=== PATIENT | male | born 1960 | race Caucasian/White ===

== ENCOUNTER 2016-09-23 08:15 | Inpatient (IN) | payer OTHER, BC ==
--- NOTE | 2016-09-01 10:20 | PAT Medication Instructions ---
Service Date Sep 01, 2016. Current Home Medication List Acetaminophen (Tylenol), 2 TAB PO Q6 Bupropion (Wellbutrin), 200 MG PO BID Citalopram (Celexa *), 40 MG PO HS Fluticasone Propionate (Flonase Nasal [place]), 2 SPRAY JILLIAN DAILY PRN Pioglitazone (Actos), 1 TAB PO QAM Zolpidem Tartrate (Ambien), 10 MG PO HS PRN for Insomnia Medication Instructions For Your Scheduled Surgery - Hold the following medications the morning of surgery: Pioglitazone (Actos), 1 TAB PO QAM - Take the following medications the morning of surgery with a sip of water: Acetaminophen (Tylenol), 2 TAB PO Q6h (may take up to 4 hours prior to surgery if needed) Bupropion (Wellbutrin), 200 MG PO BID Fluticasone Propionate (Flonase Nasal [place]), 2 SPRAY JILLIAN DAILY PRN - Take the following medications as scheduled the night before surgery: Acetaminophen (Tylenol), 2 TAB PO Q6h Citalopram (Celexa *), 40 MG PO HS Zolpidem Tartrate (Ambien), 10 MG PO HS PRN for Insomnia Bupropion (Wellbutrin), 200 MG PO BID Fluticasone Propionate (Flonase Nasal [place]), 2 SPRAY JILLIAN DAILY PRN If you have any questions please call us at [phone] or [phone] or [phone]
[2016-09-01 11:05] LABS: BASO % 0.4 %; BASO ABS # 0.02 K/uL (0-0.2); COMPLETE YES; EOS % 1.8 %; HEMATOCRIT 41.8 % (42-52); IG% 0.2 %; LYMPH ABS # 1.48 K/uL (1.2-3.4); MEAN CELL VOLUME 89.5 fL (80-100); MEAN CORPUSCULAR HEMOGLOBIN 30.4 pg (25-34); MEAN PLATELET VOLUME 10.3 fL (7.4-10.4); NEUT % 64.6 %; PLATELET COUNT 163 K/uL (130-400); RED BLOOD COUNT 4.67 M/uL (4.7-6.1)
[2016-09-01 11:11] LABS: URINE APPEARANCE CLEAR (CLEAR); URINE BILIRUBIN NEG (NEG); URINE COLOR YELLOW; URINE NITRITE NEG (NEG); URINE SPECIFIC GRAVITY 1.025 (1.000-1.030); UROBILINOGEN NEG (NEG)
[2016-09-01 11:20] LABS: MANUAL MICROSCOPIC REQUIRED? NO; REVIEW REQ? NO
[2016-09-01 11:26] LABS: CALCIUM 8.1 mg/dl (8.5-10.1); POTASSIUM 4.3 mmol/L (3.5-5.1)
[~2016-09-23] VITALS: Ht 188 cm; Wt 30.2 kg
[2016-09-23] VITALS (9 sets, daily range): BP systolic 108–132; BP diastolic 65–76; PULSE 59–85; TEMP 36.5–36.8; O2SAT 93–96; Ht 188 cm; Wt 30.2 kg
[~2016-09-23 08:15] MED LIST: ACET-1311 PO; ACT30 PO; BUPR-83 PO; CEFAZOLIN 2000 MG/60 ML D5W IV SCH; CLX20 PO; CeleBREX 200 MG CAP PO SCH; FLNIN NAE; LACTATED RINGER'S 1000ML 1,000 ML IV SCH; LACTATED RINGER'S 1000ML 500 ML IV SCH; PREGABALIN 75 MG CAP PO SCH; ZOLP10TA PO
[2016-09-23] MEDS ORDERED: ATROPINE SULFATE 0.1 MG/ML 5ML SYR IV PRN (09:15)
[2016-09-23] MEDS ORDERED: EpHEDrine SULFATE INJ 50 MG/ML AMP IV PRN (09:15)
[2016-09-23] MEDS ORDERED: MoRPHine SULFATE 10 MG/ML CARP/VIAL IV PRN (09:15)
[2016-09-23] MEDS ORDERED: ONDANSETRON INJ 2 MG/ML 2 ML VIAL IV PRN ×2 (09:15→12:30)
[2016-09-23] MEDS ORDERED: FENTANYL CITRATE INJ 50 MCG/1 ML 2 ML VIAL ONE ×2 (09:31→10:43)
[2016-09-23] MEDS ORDERED: MIDAZOLAM HCL 1 MG/ML 2ML VIAL ONE (09:31)
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
[2016-09-23] MEDS ORDERED: THROMBIN FOR SOLN 20000 UNIT KIT ONE ×2 (10:00→10:01)
[2016-09-23] MEDS ORDERED: BUPIVACAINE/EPINEPHRINE 0.5% MPF 1:200,000 30 ML VIAL ONE (10:00)
[2016-09-23] MEDS ORDERED: BACITRACIN 50000 UNIT VIAL ONE (10:01)
[2016-09-23] MEDS ORDERED: HEPARIN SOD (PORCINE) 1000 UNIT/ML 10 ML VIAL ONE (10:01)
[2016-09-23] MEDS ORDERED: THROMBIN 5000 UNITS KIT ONE (10:01)
[2016-09-23] MEDS ORDERED: HYDROmorphone INJ 2 MG/ML SYR/VIAL ONE ×2 (10:44→12:16)
[2016-09-23] MEDS ORDERED: EpHEDrine SULFATE 50MG/5ML SYR ONE ×2 (12:01→12:35)
[2016-09-23] MEDS ORDERED: PROPOFOL IV EMULSION 10 MG/ML 20 ML VIAL IV ONE (12:01)
[2016-09-23] MEDS ORDERED: ROCURONIUM BROMIDE 10 MG/ML 5 ML VIAL ONE (12:01)
[2016-09-23] MEDS ORDERED: ONDANSETRON INJ 2 MG/ML 2 ML VIAL ONE ×2 (12:01→12:35)
[2016-09-23] MEDS ORDERED: LIDOCAINE HCL 2% 2 ML VIAL (20MG/ML) ONE (12:01)
[2016-09-23] MEDS ORDERED: DEXAMETHASONE SOD INJ 4 MG/ML VIAL ONE (12:01)
[2016-09-23] MEDS ORDERED: FLOSEAL HEMOSTATIC MATRIX 10ML TOP ONE (12:03)
[2016-09-23] MEDS ORDERED: SODIUM CHLORIDE 0.9% 1000ML 1,000 ML IV SCH (12:19)
--- NOTE | 2016-09-23 12:19 | [facility] Post Operative Brief Note ---
Immediate Operative Summary Operative Date Sep 23, 2016. Pre-Operative Diagnosis Degenerative disc disease, stenosis L4-S1 with lumbar radiculopathy Post-Operative Diagnosis Same as pre-operative diagnosis Procedure(s) Performed L4-S1 Decompression and Instrumented Fusion; Infuse; Arteriocyte Surgeon Dr. Bebeto Day Charge Nurse Surgeon(s) [place] PA-C Estimated Blood Loss 450ml Findings dict Specimens None per surgeon
[2016-09-23] MEDS ORDERED: PROMETHAZINE HCL INJ 12.5 MG in SODIUM CHLORIDE 0.9% 50ML 50 ML IV PRN (12:30)
[2016-09-23] MEDS ORDERED: SOD PHOSPHATE/SOD BIPHOSPHATE ENEMA 132 ML BTL PR PRN (12:30)
[2016-09-23] MEDS ORDERED: ACETAMINOPHEN IV 100 ML IV PRN (12:30)
[2016-09-23] MEDS ORDERED: ALUMINUM/MAGNESIUM SUSP 30 ML UDC PO PRN (12:30)
[2016-09-23] MEDS ORDERED: FAMOTIDINE 20 MG TAB PO PRN (12:30)
[2016-09-23] MEDS ORDERED: METOCLOPRAMIDE HCL INJ 5 MG/ML 2 ML VIAL IV PRN (12:30)
[2016-09-23] MEDS ORDERED: BISACODYL 10 MG SUPP PR PRN (12:30)
[2016-09-23] MEDS ORDERED: hydrOXYzine HCL 25 MG TAB PO PRN (12:30)
[2016-09-23] MEDS ORDERED: ZOLPIDEM TARTRATE 10 MG TAB PO PRN (12:30)
[2016-09-23] MEDS ORDERED: LORAZEPAM INJ 0.5 MG in SYRINGE 0.75 ML IV PRN (12:30)
[2016-09-23] MEDS ORDERED: MAGNESIUM HYDROXIDE SUSP 30 ML UDC PO PRN (12:30)
[2016-09-23] MEDS ORDERED: LORAZEPAM 0.5 MG TAB PO PRN (12:30)
[2016-09-23] MEDS ORDERED: NALOXONE HCL 0.4 MG/1 ML VIAL/CARP IV PRN ×2 (12:30)
[2016-09-23] MEDS ORDERED: NEOSTIGMINE METHYLSULFATE 1 MG/ML 10ML VIAL ONE (12:35)
[2016-09-23] MEDS ORDERED: GLYCOPYRROLATE INJ 0.2 MG/ML VIAL ONE (12:35)
[2016-09-23] MEDS ORDERED: KETOROLAC TROMETHAMINE 30 MG/ML VIAL ONE (12:35)
[2016-09-23] MEDS ORDERED: MoRPHine SULFATE 1 MG/ML 50 ML PCA CASS ONE (12:36)
--- NOTE | 2016-09-23 12:45 | DIAGNOSTIC IMAGING REPORT ---
INTRAOPERATIVE LUMBAR SPINE 2 VIEWS CLINICAL HISTORY: L4-S1 Decompression and Fusion COMPARISON STUDY: No previous studies for comparison. FINDINGS: 7 seconds of fluoroscopic time was utilized. 2 fluoroscopic spot images are provided for interpretation. These reveal pedicle screws at the L4, L5 and S1 levels with adjoining spinal rods. IMPRESSION: Intraoperative radiographs demonstrating an L4-S1 spinal fusion Electronically signed by: Reji Salazar M.D. 09/23/2016 12:44 PM Dictated Date/Time: 09/23/2016 12:43 PM
--- NOTE | 2016-09-23 13:05 | Anesthesiology Progress Note ---
Anesthesia Post Op Note Date & Time Sep 23, 2016 at 13:04 Vital Signs Pain Intensity: 0 Vital Signs Past 12 Hours Date Time Temp Pulse Resp B/P Pulse Ox O2 Delivery O2 Flow Rate FiO2 09/23/16 12:50 135/76 09/23/16 12:46 70 16 09/23/16 12:46 70 16 97 09/23/16 12:45 137/76 09/23/16 12:41 69 16 09/23/16 12:41 69 16 99 09/23/16 12:40 136/77 09/23/16 12:36 72 19 09/23/16 12:36 72 19 99 09/23/16 12:35 144/81 09/23/16 12:31 77 14 09/23/16 12:31 76 14 99 09/23/16 12:30 117/72 09/23/16 12:26 70 14 99 09/23/16 12:26 70 14 09/23/16 12:25 134/76 09/23/16 12:21 76 11 09/23/16 12:21 76 11 131/72 91 09/23/16 12:21 36.1 76 14 131/72 99 Mask 10 09/23/16 08:45 36.8 59 20 127/70 96 Room Air Notes Mental Status: alert / awake / arousable, participated in evaluation Pt Amnestic to Procedure: Yes Nausea / Vomiting: adequately controlled Pain: adequately controlled Airway Patency, RR, SpO2: stable & adequate BP & HR: stable & adequate Hydration State: stable & adequate Anesthetic Complications: no major complications apparent
[2016-09-23] MEDS: FENTANYL CITRATE INJ 50 MCG/1 ML 2 ML VIAL IV PRN ×2 (13:40→13:46)
--- NOTE | 2016-09-23 13:48 | Discharge Instructions ---
Discharge Instructions Date of Service Sep 23, 2016. Admission Reason for Admission: Lumbar Spinal Stenosis Discharge Discharge Diagnosis / Problem: same Discharge Goals Goal(s): Decrease discomfort Activity Recommendations Activity Limitations: per Instructions/Follow-up section Shower/Bathe: may shower/bathe in 3 days . Current Hospital Diet Patient's current hospital diet: Diabetes Type 2 Diet Discharge Diet Recommended Diet: Regular Diet Procedures Procedures Performed: L4-S1 Decompression and Instrumented Fusion; Infuse; Arteriocyte Pending Studies Studies pending at discharge: no Medical Emergencies . Who to Call and When: Medical Emergencies: If at any time you feel your situation is an emergency, please call 911 immediately. . Non-Emergent Contact Non-Emergency issues call your: Surgeon . "Provider Documentation" section prepared by Bebeto Day. VTE Core Measure Inpt VTE Proph given/why not?: SCD's [place] Drug Monitoring Program Search Results: patient reviewed within database, no issues identified
[2016-09-23] MEDS: MoRPHine SULFATE 1 MG/ML 50 ML PCA CASS IV PRN ×2 (14:24→22:50)
[2016-09-23] MEDS: SODIUM CHLORIDE 0.9% 1000ML 1,000 ML IV SCH (14:39)
--- NOTE | 2016-09-23 16:02 | OPERATIVE REPORT ---
DATE OF OPERATION: 09/23/2016 PREOPERATIVE DIAGNOSES: 1. L4-5 and L5-S1 degenerative disc disease. 2. L4-5 and L5-S1 foraminal stenosis. 3. L4-5 and L5-S1 facet arthrosis. POSTOPERATIVE DIAGNOSIS: Same. PROCEDURES: 1. L4 and L5 laminectomies with bilateral medial facetectomies. 2. Segmental pedicle screw instrumentation -- bilateral L4, L5 and S1 with K2M [place] pedicle screws. 3. Posterolateral fusion L4-S1 - bilateral with BMP on a collagen sponge, tricalcium phosphate, local bone, bone putty and bone marrow aspirate. 4. Right iliac crest bone marrow aspiration, stem cell concentration with Arteriocyte. SURGEON: Dr. Day. RETURNS SUPERVISOR: Roc [place] PA-C. Please note he participated in all portions of the procedure and was critical for performance of the procedure, participated in positioning, prepping, draping, retraction and wound closure. ANESTHESIA: General endotracheal anesthesia. COMPLICATIONS: None. ESTIMATED BLOOD LOSS: Per anesthesia record. OPERATION AND FINDINGS: PROCEDURE: After identification of patient and operative level, he was brought to the OR where he underwent induction of general anesthesia. He was then positioned prone on [facility] OR table. All bony prominences were well padded. Care was taken to avoid pressure on the periorbital area. Lumbosacral area was sterilely prepped and draped in usual fashion. Antibiotics were administered. Time-out was performed. Level was confirmed and skin incision made after infiltration with Marcaine with epinephrine. I made skin incision from spinous process of L3 to the sacrum. I performed routine posterior exposure, placed Gelpi retractors and confirmed level with fluoroscopy. I then did a midline decompression with L4 and L5 laminectomies, midline removal of ligamentum flavum at L4-5 and L5-S1 and then removal of the medial facets at L4-L5 and L5-S1 with an osteotome. I completed decompression with Kerrisons, performed wide foraminotomies at L4-5 and L5-S1. I palpated the nerve roots from L4 to the sacrum were decompressed completely. I considered doing an interbody at L4-5, but the anterior dura was adherent to the disc and the disc space was markedly collapsed posteriorly. I then turned my attention to instrumentation, placed screws bilaterally at L4, L5 and S1 with K2M [place] pedicle screws. I confirmed screw position with fluoroscopy. Screws had excellent purchase. I then lowered the Yosef frame to restore lordosis, applied rods and end caps final tightening and then irrigated with bacitracin solution and decorticated transverse process from L4 to the sacral ala bilaterally with a high speed amy for subsequent bone grafting. The bone marrow aspirate was taken from the right iliac crest via separate stab incision with a Jamshidi needle and concentrated with stem cell concentration system and applied to the bone graft clinical pharmacologist mixed with morcellized local bone. I then packed the gutters from L4 to the sacral ala with a bone graft mixture including Infuse BMP on a Collagen sponge. I then confirmed hemostasis and closed in layered fashion over ANTONIA drain. All sponge and needle counts were correct at the end of the case. I attest to the content of the Intraoperative Record and any orders documented therein. Any exceptio ns are noted below.
[2016-09-23] MEDS: CEFAZOLIN IV 2,000 MG in DEXTROSE 5% 50ML 50 ML IV SCH (18:10)
[2016-09-23] MEDS: DOCUSATE SODIUM/SENNA 50/8.6MG TAB PO SCH (20:30)
[2016-09-23] MEDS: CITALOPRAM 20 MG TAB PO SCH (20:30)
[2016-09-24] MEDS: CEFAZOLIN IV 2,000 MG in DEXTROSE 5% 50ML 50 ML IV SCH (01:35)
[2016-09-24] MEDS: SODIUM CHLORIDE 0.9% 1000ML 1,000 ML IV SCH (01:35)
[2016-09-24 03:22] VITALS: BP 123/71; PULSE 64; TEMP 36.5; O2SAT 95
[2016-09-24] MEDS ORDERED: HYDROmorphone INJ 1 MG/ML SYR IV PRN (06:00)
[2016-09-24] MEDS ORDERED: HYDROmorphone INJ 0.5 MG/0.5 ML SYR IV PRN (06:00)
[2016-09-24] MEDS ORDERED: DC PCA SCH (06:00)
[2016-09-24] MEDS ORDERED: NURSING DECISION MEDICATION ORDER SCH (06:15)
[2016-09-24 06:17] LABS: BASO % 0.1 %; BASO ABS # 0.01 K/uL (0-0.2); COMPLETE YES; EOS % 0.1 %; IG% 0.2 %; LYMPH % 10.3 %; MEAN CELL VOLUME 88.9 fL (80-100); MEAN CORPUSCULAR HEMOGLOBIN 31.1 pg (25-34); MEAN PLATELET VOLUME 10.5 fL (7.4-10.4); MONO % 10.3 %; PLATELET COUNT 160 K/uL (130-400); RED BLOOD COUNT 4.05 M/uL (4.7-6.1); WHITE BLOOD COUNT 11.67 K/uL (4.8-10.8)
[2016-09-24 06:50] LABS: CALCIUM 7.9 mg/dl (8.5-10.1); CREATININE 1.1 mg/dl (0.60-1.40); POTASSIUM 4.2 mmol/L (3.5-5.1)
[2016-09-24 06:56] VITALS: BP 118/66; PULSE 72; TEMP 36.4; O2SAT 95
[2016-09-24] MEDS: OXYCODONE HCL IR 5 MG TAB (IMMEDIATE RELEASE) PO PRN ×4 (08:08→21:24)
[2016-09-24 16:10] VITALS: BP 111/61; PULSE 77; TEMP 36.6; O2SAT 95
[2016-09-24] MEDS: CITALOPRAM 20 MG TAB PO SCH (21:12)
[2016-09-24] MEDS: DOCUSATE SODIUM/SENNA 50/8.6MG TAB PO SCH (21:13)
[2016-09-24 23:55] VITALS: BP 123/65; PULSE 84; TEMP 36.6; O2SAT 94
[2016-09-25] MEDS: POLYETHYLENE (MIRALAX) 17 GM PACK PO SCH ×2 (05:45→11:00)
[2016-09-25 06:56] VITALS: BP 115/70; PULSE 72; TEMP 37; O2SAT 97
[2016-09-25] MEDS: OXYCODONE HCL IR 5 MG TAB (IMMEDIATE RELEASE) PO PRN ×2 (07:44→13:15)
[2016-09-25] MEDS ORDERED: RXC5 PO (08:59)
--- NOTE | 2016-09-25 09:07 | Orthopedic Progress Note ---
Orthopedic Progress Note Date of Service Sep 25, 2016. Subjective Post OP Day: 2 Reports: feeling well, pain controlled w PO medications, Denies: SOB, calf pain , chest pain, complaints, light headedness, nausea / vomiting, using CLINICAL SUPERVISOR Objective calves soft nontender, N/V intact, dressing C/D/I, A&O x3, hemovac drainage Date Time Temp Pulse Resp B/P Pulse Ox O2 Delivery O2 Flow Rate FiO2 09/25/16 07:40 Room Air 09/25/16 06:56 37.0 72 18 115/70 97 Room Air 09/24/16 23:55 36.6 84 18 123/65 94 Room Air 09/24/16 23:48 Room Air 09/24/16 20:00 Room Air 09/24/16 16:10 36.6 77 16 111/61 95 Room Air 09/24/16 15:55 Room Air Assessment & Plan Assessment: doing well with ambulation and pain control, [facility] still has mod output. desires d/c home Plan: will arrange for home nursing to d/c drain tomorrow and d/c home following Discharge Planning Discharge Planning: home Pain Management: Oxy IR DVT Prophylaxis: SCDs
[2016-09-25 11:30] VITALS: BP 115/70; PULSE 72; TEMP 37; O2SAT 97
--- NOTE | 2016-10-07 14:30 | Discharge Summary ---
Orthopedic Discharge Summary Admission Date/Reason Sep 23, 2016 at 12:22 Lumbar Spinal Stenosis. Discharge Date/Disposition Sep 25, 2016 Home Diagnosis Principal Diagnosis: spinal stenosis Procedure(s) Performed L4-S1 PSF Medication Reconciliation New Medications: Oxycodone HCl (Oxycodone HCl) 5 Mg Tab 5-10 MG PO Q4H PRN for Moderate - severe pain, #100 TAB Continued Medications: Acetaminophen (Tylenol) 325 Mg Tab 2 TAB PO Q6 PRN for Pain, TAB Bupropion (Wellbutrin) 100 Mg Tab 200 MG PO BID, 0 Refills Citalopram (Celexa *) 40 Mg Tab 40 MG PO HS, 0 Refills Fluticasone Propionate (Flonase Nasal [place]) 120 Sprays/6000 Mcg [place] 2 SPRAY JILLIAN DAILY PRN, BTL Pioglitazone (Actos) 30 Mg Tab 1 TAB PO QAM for 90 Days, #90 TAB 3 Refills Zolpidem Tartrate (Ambien) 10 Mg Tab 10 MG PO HS PRN for Insomnia, TAB Admission Physical Exam As per Admitting History & Physical. Hospital Course He was admitted for elective lumbar decompression and fusion and underwent the procedure uneventfully. He mobilized well with PT/OT, showed adequate pain control, had return of bowel function, stable vitals signs, and was discharged home in good condition. Discharge Instructions Please refer to the electronic Patient Visit Report (Discharge Instructions) for additional information.
== END 2016-09-25 15:00 | disposition home health service (06) | DRG 460 ==
LOC: ENRESERVDT → ENRESERVTM → C.ACU 08:15 → C.MSN 12:22 → CANBEDREQ 15:02
PROVIDERS: ADMIT Orthopaedic Surgery Orthopaedic Surgery of the Spine; ATTEND Orthopaedic Surgery Orthopaedic Surgery of the Spine
PROC: 0SG00J1 Fusion of Lumbar Vertebral Joint with Synthetic Substitute, Posterior Approach, Posterior Column, Open Approach (ICD-10-PCS; principal; 2016-09-23 10:35)
PROC: 0SG30J1 Fusion of Lumbosacral Joint with Synthetic Substitute, Posterior Approach, Posterior Column, Open Approach (ICD-10-PCS; principal; 2016-09-23 10:35)
PROC: 07DR3ZZ Extraction of Iliac Bone Marrow, Percutaneous Approach (ICD-10-PCS; principal; 2016-09-23 10:35)
DX: M51.16 Intervertebral disc disorders with radiculopathy, lumbar region (principal); M51.17 Intervertebral disc disorders with radiculopathy, lumbosacral region; M48.07 Spinal stenosis, lumbosacral region; M48.06 Spinal stenosis, lumbar region; M47.26 Other spondylosis with radiculopathy, lumbar region; M47.27 Other spondylosis with radiculopathy, lumbosacral region; E11.9 Type 2 diabetes mellitus without complications; G47.33 Obstructive sleep apnea (adult) (pediatric); Z98.1 Arthrodesis status

== ENCOUNTER 2017-08-22 08:09 | Inpatient (IN) | payer BC, OTHER ==
[~2017-08-22] VITALS: Ht 188 cm; Wt 105.0 kg
[2017-08-22] VITALS (7 sets, daily range): BP systolic 116–143; BP diastolic 71–86; PULSE 79–93; TEMP 36.8–37; O2SAT 93–98; Ht 188 cm; Wt 105.0 kg
[~2017-08-22 08:09] MED LIST changes: -CEFAZOLIN 2000 MG/60 ML D5W IV SCH; -CeleBREX 200 MG CAP PO SCH; -LACTATED RINGER'S 1000ML 1,000 ML IV SCH; -LACTATED RINGER'S 1000ML 500 ML IV SCH; -PREGABALIN 75 MG CAP PO SCH; +RXC5 PO
[2017-08-22] MEDS ORDERED: SODIUM CHLORIDE 0.9% 1000ML 1,000 ML IV STA (08:31)
[2017-08-22] MEDS ORDERED: HYDROmorphone INJ 1 MG/ML SYR IV STA (08:31)
[2017-08-22] MEDS ORDERED: ONDANSETRON INJ 2 MG/ML 2 ML VIAL IV STA (08:31)
[2017-08-22 09:07] LABS: BASO % 0.1 %; BASO ABS # 0.01 K/uL (0-0.2); EOS % 0.1 %; EOS ABS # 0.01 K/uL (0-0.5); HEMATOCRIT 44.3 % (42-52); HEMOGLOBIN 16.1 g/dL (14.0-18.0); IG# 0.01 K/uL (0.00-0.02); LYMPH % 8.2 %; LYMPH ABS # 0.73 K/uL (1.2-3.4); MEAN CORPUSCULAR HEMOGLOBIN 33.1 pg (25-34); MEAN CORPUSCULAR HGB CONC 36.3 g/dl (32-36); MEAN PLATELET VOLUME 10.5 fL (7.4-10.4); MONO % 6.9 %; MONO ABS # 0.61 K/uL (0.11-0.59); NEUT % 84.6 %; PLATELET COUNT 152 K/uL (130-400); RED CELL DISTRIBUTION WIDTH CV 12.3 % (11.5-14.5); RED CELL DISTRIBUTION WIDTH SD 40.9 fL (36.4-46.3); WHITE BLOOD COUNT 8.87 K/uL (4.8-10.8)
[2017-08-22 09:23] LABS: ALBUMIN 4.1 gm/dl (3.4-5.0); CALCIUM 8.8 mg/dl (8.5-10.1); CREATININE 1.27 mg/dl (0.60-1.40); POTASSIUM 3.8 mmol/L (3.5-5.1)
[2017-08-22 09:26] LABS: TOTAL PROTEIN 7.8 gm/dl (6.4-8.2)
[2017-08-22] MEDS ORDERED: OPTIRAY 320 IV PRN (11:30)
[2017-08-22] MEDS ORDERED: HYDROmorphone INJ 0.5 MG/0.5 ML SYR IV STA (11:47)
--- NOTE | 2017-08-22 12:30 | DIAGNOSTIC IMAGING REPORT ---
CT OF THE ABDOMEN AND PELVIS WITH CONTRAST CLINICAL HISTORY: Abdominal pain and vomiting. COMPARISON STUDY: None. TECHNIQUE: Following IV administration of 93 mL of Optiray-320, axial images of the abdomen and pelvis were obtained from the lung bases to the proximal femurs. Images were reviewed in the axial, sagittal, and coronal planes. IV contrast was administered without complication. A dose lowering technique was utilized adhering to the principles of ALARA. Oral contrast was administered. CT DOSE: 838.24 mGy.cm FINDINGS: There is oral contrast within the distal esophagus which may reflect reflux. The liver, spleen, adrenal glands, kidneys and pancreas are unremarkable. There is no biliary or pancreatic ductal dilatation. There is marked appendiceal dilatation. The appendix measures 2 cm in caliber. There is appendiceal wall thickening. There is moderate periappendiceal infiltration as well as a infiltration adjacent to the cecum and proximal adjacent colon. There is apparent marked wall thickening of the cecum. There is no free air or abscess. Two suspected appendicoliths within the base of the appendix are noted. There is a small amount of abdominal and pelvic ascites. No rim-enhancing fluid collection is identified to suggest an abscess. There is no evidence for a bowel obstruction. There is no lymphadenopathy. There are no suspicious osseous lesions. Postoperative finding within the spine are noted. IMPRESSION: Findings consistent with acute appendicitis. Dilated appendix which contains two appendicoliths. Moderate periappendiceal infiltration and a small amount of ascites throughout the abdomen and pelvis. No free air or abscess. The degree of inflammation raises the possibility of appendiceal perforation. Pronounced cecal wall thickening likely reflects edema secondary to acute appendicitis. However, an underlying mass could appear similar. This can be assessed at time of surgery. Discussed with Raj Roberson at time of dictation. Electronically signed by: Avery Boyle M.D. 08/22/2017 12:29 PM Dictated Date/Time: 08/22/2017 12:16 PM
[2017-08-22] MEDS ORDERED: DEXAMETHASONE SOD INJ 4 MG/ML VIAL ONE (13:34)
[2017-08-22] MEDS ORDERED: PROPOFOL IV EMULSION 10 MG/ML 20 ML VIAL IV ONE (13:34)
[2017-08-22] MEDS ORDERED: SUCCINYLCHOLINE CHLORIDE 20 MG/ML 10 ML VIAL IV ONE (13:34)
[2017-08-22] MEDS ORDERED: ROCURONIUM BROMIDE 10 MG/ML 5 ML VIAL IV ONE (13:34)
[2017-08-22] MEDS ORDERED: FENTANYL CITRATE INJ 50 MCG/1 ML 2 ML VIAL ONE ×2 (13:34→14:39)
[2017-08-22] MEDS ORDERED: LIDOCAINE HCL 2% 2 ML VIAL (20MG/ML) ONE (13:34)
[2017-08-22] MEDS ORDERED: MIDAZOLAM HCL 1 MG/ML 2ML VIAL ONE (13:34)
[2017-08-22] MEDS ORDERED: ONDANSETRON INJ 2 MG/ML 2 ML VIAL ONE (13:34)
--- NOTE | 2017-08-22 13:41 | History and Physical ---
History & Physical Date & Time of Service: Aug 22, 2017 at 13:35 Chief Complaint: [place] Pain Primary Care Physician: Jeremías Trevino M.D. History of Present Illness Source: patient 57 yr old man who presents with right lower quadrant pain since yesterday. Constant, sharp, 10/10 in severity, no radiation, worse with movement, felt chilled but did not take his temperature. No similar symptoms. Associated with anorexia, last meal was yesterday. No nausea or vomiting. Last cscope in 1999, no polyps as by his report. Came to ER with CT scan showing appendicitis with thickened cecum. Past Medical/Surgical History back and neck problems prediabetes denies hypertension, heart attack, stroke, renal or pulmonary issues PSHx: back and neck surgery. No prior abdominal operations. Family History noncontributory Social History Smoking Status: Never Smoker Drug Use: none Marital Status: Housing status: lives with family Occupational Status: employed Immunizations History of Influenza Vaccine: Yes History of Tetanus Vaccine?: Yes History of Pneumococcal: No History of Hepatitis B Vaccine: No Multi-Drug Resistant Organisms History of MDRO: No Allergies Coded Allergies: No Known Allergies (Unverified , 08/22/17) Home Medications Scheduled Bupropion (Wellbutrin), 200 MG PO BID Citalopram (Celexa *), 40 MG PO HS Pioglitazone (Actos), 1 TAB PO QAM Scheduled PRN Acetaminophen (Tylenol), 2 TAB PO Q6 PRN for Pain Fluticasone Propionate (Flonase Nasal [place]), 2 SPRAY JILLIAN DAILY PRN Zolpidem Tartrate (Ambien), 10 MG PO HS PRN for Insomnia Review of Systems Constitutional: + chills Eyes: No problem reported ENT: No problem reported Respiratory: No problem reported Cardiovascular: No problem reported Abdomen: + pain Musculoskeletal: + problem reported (back and neck issues) Neurologic: No problem reported Psychiatric: No problem reported Endocrine: No problem reported Hematologic / Lymphatic: No problem reported Integumentary: No problem reported Allergic / Immunologic: No problem reported Physical Exam Vital Signs Date Time Temp Pulse Resp B/P (MAP) Pulse Ox O2 Delivery O2 Flow Rate FiO2 08/22/17 12:52 85 08/22/17 12:48 80 18 135/69 93 Room Air 08/22/17 12:01 85 18 95 Room Air 08/22/17 10:58 78 16 117/57 Room Air 08/22/17 09:44 77 16 110/59 Room Air 08/22/17 09:14 76 08/22/17 09:08 73 20 08/22/17 08:13 36.5 81 22 109/72 98 Room Air General Appearance: WD/WN, no apparent distress Head: normocephalic, atraumatic Eyes: normal inspection, PERRL ENT: normal ENT inspection, hearing grossly normal Neck: trachea midline Respiratory/Chest: lungs clear, normal breath sounds, no respiratory distress Cardiovascular: regular rate, rhythm Abdomen/GI: normal bowel sounds, soft, + tenderness (over McBurney's point with guarding) Back: normal inspection, no CVA tenderness Extremities/Musculoskelatal: no calf tenderness, no pedal edema Neurologic/Psych: alert, normal mood/affect, oriented x 3 Skin: normal color, warm/dry Diagnostics Laboratory Results Results Past 24 Hours Test 08/22/17 09:00 08/22/17 13:07 Range/Units White Blood Count 8.87 4.8-10.8 K/uL Red Blood Count 4.87 4.7-6.1 M/uL Hemoglobin 16.1 14.0-18.0 g/dL Hematocrit 44.3 42-52 % Mean Corpuscular Volume 91.0 80-100 fL Mean Corpuscular Hemoglobin 33.1 25-34 pg Mean Corpuscular Hemoglobin Concent 36.3 32-36 g/dl Platelet Count 152 130-400 K/uL Mean Platelet Volume 10.5 7.4-10.4 fL Neutrophils (%) (Auto) 84.6 % Lymphocytes (%) (Auto) 8.2 % Monocytes (%) (Auto) 6.9 % Eosinophils (%) (Auto) 0.1 % Basophils (%) (Auto) 0.1 % Neutrophils # (Auto) 7.50 1.4-6.5 K/uL Lymphocytes # (Auto) 0.73 1.2-3.4 K/uL Monocytes # (Auto) 0.61 0.11-0.59 K/uL Eosinophils # (Auto) 0.01 0-0.5 K/uL Basophils # (Auto) 0.01 0-0.2 K/uL RDW Standard Deviation 40.9 36.4-46.3 fL RDW Coefficient of Variation 12.3 11.5-14.5 % Immature Granulocyte % (Auto) 0.1 % Immature Granulocyte # (Auto) 0.01 0.00-0.02 K/uL Sodium Level 137 136-145 mmol/L Potassium Level 3.8 3.5-5.1 mmol/L Chloride Level 103 98-107 mmol/L Carbon Dioxide Level 29 21-32 mmol/L Anion Gap 6.0 3-11 mmol/L Blood Urea Nitrogen 13 7-18 mg/dl Creatinine 1.27 0.60-1.40 mg/dl Est Creatinine Clear Calc Drug Dose 81.9 ml/min Estimated GFR () 71.7 Estimated GFR (Non- 61.9 BUN/Creatinine Ratio 10.4 10-20 Random Glucose 180 70-99 mg/dl Calcium Level 8.8 8.5-10.1 mg/dl Total Bilirubin 0.9 0.2-1 mg/dl Direct Bilirubin 0.2 0-0.2 mg/dl Aspartate Amino Transf (AST/SGOT) 14 15-37 U/L Alanine Aminotransferase (ALT/SGPT) 26 12-78 U/L Alkaline Phosphatase 93 45-117 U/L Total Protein 7.8 6.4-8.2 gm/dl Albumin 4.1 3.4-5.0 gm/dl Lipase 73 73-393 U/L Urine Color YELLOW Urine Appearance CLEAR CLEAR Urine pH 6.0 4.5-7.5 Urine Specific [place] > 1.045 1.000-1.030 Urine Protein NEG NEG Urine Glucose (UA) NEG NEG Urine Ketones NEG NEG Urine Occult Blood NEG NEG Urine Nitrite NEG NEG Urine Bilirubin NEG NEG Urine Urobilinogen NEG NEG Urine Leukocyte Esterase NEG NEG Diagnostic Radiology CT scan reviewed - shows 2 cm appendix with periappendiceal inflammation extending to base of cecum Impression Assessment and Plan 57 yr old man with acute appendicitis. CT scan concerning for involvement of cecum. Discussed laparoscopic appendectomy with risks of bleeding, infection, conversion to open, postop ileus/ abscess. Discussed possibility of needing larger procedure with bowel resection and even remote possibility of mass/ cancer. All questions answered. Consent signed. Will given cefoxitin today.
[2017-08-22] MEDS ORDERED: CEFOXITIN IV 2,000 MG in DEXTROSE 5% 50ML 50 ML IV SCH (13:45)
[2017-08-22] MEDS ORDERED: BUPIVACAINE 0.5 % 5 MG/1 ML MPF 30ML VIAL ONE ×2 (13:56→15:23)
[2017-08-22] MEDS ORDERED: ONDANSETRON INJ 2 MG/ML 2 ML VIAL IV PRN ×2 (14:00→15:45)
[2017-08-22] MEDS ORDERED: ATROPINE SULFATE 0.1 MG/ML 5ML SYR IV PRN (14:00)
[2017-08-22] MEDS ORDERED: HYDROmorphone INJ 1 MG/ML SYR IV PRN (14:00)
[2017-08-22] MEDS ORDERED: PROMETHAZINE HCL INJ 12.5 MG in SODIUM CHLORIDE 0.9% 50ML 50 ML IV PRN (14:00)
[2017-08-22] MEDS ORDERED: EpHEDrine SULFATE INJ 50 MG/ML AMP IV PRN (14:00)
[2017-08-22] MEDS ORDERED: FENTANYL CITRATE INJ 50 MCG/1 ML 2 ML VIAL IV PRN (14:00)
[2017-08-22] MEDS ORDERED: NEOSTIGMINE METHYLSULFATE 5 MG/5 ML SYR ONE (14:28)
[2017-08-22] MEDS ORDERED: GLYCOPYRROLATE INJ 0.2 MG/ML VIAL ONE (14:28)
[2017-08-22] MEDS ORDERED: KETOROLAC TROMETHAMINE 30 MG/ML VIAL ONE (15:33)
--- NOTE | 2017-08-22 15:42 | [facility] Post Operative Brief Note ---
Immediate Operative Summary Operative Date Aug 22, 2017. Pre-Operative Diagnosis Acute Appendicitis Post-Operative Diagnosis Perforated appendicitis with phlegmon Procedure(s) Performed Laparoscopic converted to Open appendectomy Surgeon Dr Shari Perry Revenue Stamper Surgeon(s) none Estimated Blood Loss 15 ml Findings See Below perforated appendicitis with perforation high near base of appendix Fluids (cc crystalloids) 1400 cc Specimens A: Appendix and base of cecum Drains 10 flat ANTONIA in RLQ Anesthesia Type General Complication(s) none Disposition Accompanied Pt To Recover: yes Disposition: Recovery Room / PACU
[2017-08-22] MEDS ORDERED: OXYCODONE/ACETAMINOPHEN 5-325 TAB PO PRN (15:45)
[2017-08-22] MEDS ORDERED: FLUTICASONE PROPIONATE NA SPR 16 GM BTL NAE PRN (15:45)
[2017-08-22] MEDS ORDERED: ACETAMINOPHEN 325 MG TAB PO PRN (15:45)
[2017-08-22] MEDS ORDERED: MoRPHine SULFATE 4 MG/ML 1 ML CARP\\VIAL IV PRN (15:45)
[2017-08-22] MEDS ORDERED: ZOLPIDEM TARTRATE 10 MG TAB PO PRN (15:45)
[2017-08-22] MEDS ORDERED: MoRPHine SULFATE 2 MG/ML CARP IV PRN (15:45)
--- NOTE | 2017-08-22 15:51 | EMERGENCY ROOM VISIT NOTE ---
ED Visit Note First contact with patient: 08:17 Chief Complaint: Abdominal pain. History of Present Illness: Mr. Land is a 57 year-old white male who ambulates into the ED accompanied by a male friend complaining of right lower quadrant abdominal pain. Historically patient reports patient denies any gastrointestinal disorders or abdominal surgeries Patient reports a gradual onset of inferior umbilicus pain yesterday afternoon. Initially it was mild and intermittent. 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 Then over the last 3 hours he reports his pain was exacerbated. Initially his pain was achy and now it is sharp in nature. He rates his discomfort 10/10. His pain is over McBurney's point. His pain is nonradiating. His pain worsens with palpation, ambulation and deep inspiration. He has not identified any alleviating factors related to the pain. He reports he did use a dose of Pepto-Bismol earlier in the morning without relief of his discomfort. He reports when the pain became severe he became diaphoretic this morning. He denies any associated symptoms including fevers, chills, upper respiratory tract symptoms, cough, wheezing, shortness of breath, chest pain, upper abdominal pain, nausea, vomiting, diarrhea, constipation, rectal bleeding, black/tarry stools, urinary symptoms, hematuria. Review of Systems: As noted above in history of present illness. All body systems were reviewed and found to be negative as noted above. Past Medical History: As previously noted, status post cervical and lumbar spine surgery. Current Medications: Wellbutrin, Celexa, Flonase, Ambien, Actos and acetaminophen. Allergies to Medications: Patient denies. Social History: Patient is currently employed; he feels safe in his home environment; he denies tobacco and alcohol use. Physical Examination: Vital Signs: Date Time Temp Pulse Resp B/P (MAP) Pulse Ox O2 Delivery O2 Flow Rate FiO2 08/22/17 12:52 85 08/22/17 12:48 80 18 135/69 93 Room Air 08/22/17 12:01 85 18 95 Room Air 08/22/17 10:58 78 16 117/57 Room Air 08/22/17 09:44 77 16 110/59 Room Air 08/22/17 09:14 76 08/22/17 09:08 73 20 08/22/17 08:13 36.5 81 22 109/72 98 Room Air GENERAL: 57-year-old female in moderate distress due to pain, nontoxic-appearing , afebrile and hemodynamically stable. NEUROLOGICAL: Awake, alert and oriented to person, place and time. Answering questions appropriately and following commands. Normal gait. Good hand eye coordination. SKIN: Warm, diaphoretic and pink. No soft tissue eruptions or trauma noted. HEENT: Atraumatic and normocephalic. PERRLA. Sclera white and conjunctiva pink. Oral cavity moist and pink. Pharynx is nonerythematous or edematous. Speech normal. Trachea midline. No jugular venous distention. BACK: No tenderness over the bony spine. No CVA tenderness. THORAX: Lungs sounds are clear to auscultation and equal bilaterally with symmetrical chest wall. No wheezing, rales or rhonchi. No crepitus, tenderness , subcutaneous air or deformities noted. HEART: Regular rate and rhythm. No gallops, rubs or murmurs are appreciated. ABDOMEN: Flat and soft with moderate tenderness over McBurney's point with guarding. Decreased bowel sounds in all quadrants. No rigidity or organomegaly. EXTREMITIES: Moves all extremities well on command and with purpose. All distal neurovascular statuses are intact and equal bilaterally. ED Course: Patient is assessed as noted above. Laboratory Testing: Test 08/22/17 09:00 08/22/17 13:07 Range/Units White Blood Count 8.87 4.8-10.8 K/uL Red Blood Count 4.87 4.7-6.1 M/uL Hemoglobin 16.1 14.0-18.0 g/dL Hematocrit 44.3 42-52 % Mean Corpuscular Volume 91.0 80-100 fL Mean Corpuscular Hemoglobin 33.1 25-34 pg Mean Corpuscular Hemoglobin Concent 36.3 32-36 g/dl Platelet Count 152 130-400 K/uL Mean Platelet Volume 10.5 7.4-10.4 fL Neutrophils (%) (Auto) 84.6 % Lymphocytes (%) (Auto) 8.2 % Monocytes (%) (Auto) 6.9 % Eosinophils (%) (Auto) 0.1 % Basophils (%) (Auto) 0.1 % Neutrophils # (Auto) 7.50 1.4-6.5 K/uL Lymphocytes # (Auto) 0.73 1.2-3.4 K/uL Monocytes # (Auto) 0.61 0.11-0.59 K/uL Eosinophils # (Auto) 0.01 0-0.5 K/uL Basophils # (Auto) 0.01 0-0.2 K/uL RDW Standard Deviation 40.9 36.4-46.3 fL RDW Coefficient of Variation 12.3 11.5-14.5 % Immature Granulocyte % (Auto) 0.1 % Immature Granulocyte # (Auto) 0.01 0.00-0.02 K/uL Sodium Level 137 136-145 mmol/L Potassium Level 3.8 3.5-5.1 mmol/L Chloride Level 103 98-107 mmol/L Carbon Dioxide Level 29 21-32 mmol/L Anion Gap 6.0 3-11 mmol/L Blood Urea Nitrogen 13 7-18 mg/dl Creatinine 1.27 0.60-1.40 mg/dl Est Creatinine Clear Calc Drug Dose 81.9 ml/min Estimated GFR () 71.7 Estimated GFR (Non- 61.9 BUN/Creatinine Ratio 10.4 10-20 Random Glucose 180 70-99 mg/dl Calcium Level 8.8 8.5-10.1 mg/dl Total Bilirubin 0.9 0.2-1 mg/dl Direct Bilirubin 0.2 0-0.2 mg/dl Aspartate Amino Transf (AST/SGOT) 14 15-37 U/L Alanine Aminotransferase (ALT/SGPT) 26 12-78 U/L Alkaline Phosphatase 93 45-117 U/L Total Protein 7.8 6.4-8.2 gm/dl Albumin 4.1 3.4-5.0 gm/dl Lipase 73 73-393 U/L Urine Color YELLOW Urine Appearance CLEAR CLEAR Urine pH 6.0 4.5-7.5 Urine Specific [place] > 1.045 1.000-1.030 Urine Protein NEG NEG Urine Glucose (UA) NEG NEG Urine Ketones NEG NEG Urine Occult Blood NEG NEG Urine Nitrite NEG NEG Urine Bilirubin NEG NEG Urine Urobilinogen NEG NEG Urine Leukocyte Esterase NEG NEG Contrast Abdominal/Pelvic CT: Was reviewed by myself and read by the radiologist showing findings consistent with acute appendicitis; dilated appendix which contains 2 appendicoliths, moderate sanju-appendical infiltration and a small amount of ascites throughout the abdomen and pelvis. No abscess or free air. Radiologist reports the degree of inflammatory raises questions of a possible perforation. Pronounced cecal wall thickening. Patient was hydrated with normal saline and received a total of 1.5 mg of Dilaudid IV and 4 mg of Zofran IV. Patient was reassessed multiple times during her stay in the emergency department. Patient's case was reviewed with Dr. Kauffman; we agreed on diagnostic approach, treatment, disposition and plan. Patient's case was attempted with Dr. Shari Perry; I was informed that just prior to paging her she had already scrubbed into a surgical case and would evaluate the patient after the case. Patient then was taken to the preop area and was seen by Dr. Perry there. Patient was educated about today's findings and instructed on his treatment plan ; he verbalized understanding and agreement with this plan. Clinical Impression: Acute appendicitis. Decision-Making: Initially my differential diagnosis I considered appendicitis, kidney stone, pyelonephritis, bowel obstruction, constipation, testicular torsion and other causes. Disposition: Patient was taken to the OR to meet the surgeon, Dr. Perry for emergency surgery. Please see her notes in order for final disposition and plan.
[2017-08-22] MEDS: OXYCODONE/ACETAMINOPHEN 5-325 TAB PO PRN ×2 (16:51→23:36)
[2017-08-22] MEDS: LACTATED RINGER'S 1000ML 1,000 ML IV SCH ×2 (18:12→21:36)
[2017-08-22] MEDS: CEFOXITIN IV 1,000 MG in DEXTROSE 5% 50ML 50 ML IV SCH ×2 (18:13→23:33)
[2017-08-22] MEDS: MoRPHine SULFATE 2 MG/ML CARP IV PRN ×2 (18:21→21:19)
--- NOTE | 2017-08-22 18:58 | Anesthesiology Progress Note ---
Anesthesia Post Op Note Date & Time Aug 22, 2017 at 18:58 Vital Signs Pain Intensity: 4.0 Vital Signs Past 12 Hours Date Time Temp Pulse Resp B/P (MAP) Pulse Ox O2 Delivery O2 Flow Rate FiO2 08/22/17 17:00 Nasal Cannula 2.0 08/22/17 16:40 36.8 91 16 143/86 (105) 98 Nasal Cannula 2.0 08/22/17 16:30 36.6 85 16 131/86 98 Nasal Cannula 2 08/22/17 16:20 83 16 123/82 99 Nasal Cannula 2 08/22/17 16:10 82 16 139/85 99 Nasal Cannula 2 08/22/17 16:00 79 16 139/84 98 Oxymask 10 08/22/17 15:54 36.4 82 16 139/84 97 Oxymask 10 08/22/17 12:52 85 08/22/17 12:48 80 18 135/69 93 Room Air 08/22/17 12:01 85 18 95 Room Air 08/22/17 10:58 78 16 117/57 Room Air 08/22/17 09:44 77 16 110/59 Room Air 08/22/17 09:14 76 08/22/17 09:08 73 20 08/22/17 08:13 36.5 81 22 109/72 98 Room Air Notes Mental Status: alert / awake / arousable, participated in evaluation Pt Amnestic to Procedure: Yes Nausea / Vomiting: adequately controlled Pain: adequately controlled Airway Patency, RR, SpO2: stable & adequate BP & HR: stable & adequate Hydration State: stable & adequate Anesthetic Complications: no major complications apparent
[2017-08-22] MEDS: CITALOPRAM 40 MG TAB PO SCH (21:33)
[2017-08-22] MEDS ORDERED: NURSING VERBAL MED ORDER ONE (21:45)
[2017-08-23] MEDS: MoRPHine SULFATE 2 MG/ML CARP IV PRN (02:48)
[2017-08-23 03:10] VITALS: BP 110/62; PULSE 82; TEMP 37; O2SAT 93
[2017-08-23] MEDS: CEFOXITIN IV 1,000 MG in DEXTROSE 5% 50ML 50 ML IV SCH ×2 (05:52→11:30)
[2017-08-23] MEDS: OXYCODONE/ACETAMINOPHEN 5-325 TAB PO PRN ×4 (05:52→21:38)
[2017-08-23] MEDS: LACTATED RINGER'S 1000ML 1,000 ML IV SCH ×2 (05:53→17:24)
[2017-08-23 06:53] VITALS: BP 109/61; PULSE 80; TEMP 36.8; O2SAT 91
--- NOTE | 2017-08-23 08:53 | Surgery Progress Note ---
Surgery Progress Note Date of Service Aug 23, 2017. Subjective Post OP Day: 1 + feeling well, + diet, No complaints, No bowel movement, No flatus, No nausea, No vomiting Objective Vital Signs: Date Time Temp Pulse Resp B/P (MAP) Pulse Ox O2 Delivery O2 Flow Rate FiO2 08/23/17 06:53 36.8 80 16 109/61 (77) 91 Room Air 08/23/17 03:10 37.0 82 18 110/62 (78) 93 Room Air 08/22/17 23:40 Room Air 08/22/17 23:13 36.9 93 17 121/74 (90) 93 Room Air 08/22/17 19:40 36.9 84 17 116/74 (88) 93 Room Air 08/22/17 19:35 36.8 91 16 143/86 98 Nasal Cannula 2.0 08/22/17 18:40 37.0 79 17 116/71 (86) 93 Room Air 08/22/17 17:40 37.0 86 17 119/73 (88) 97 Nasal Cannula 2.0 08/22/17 17:10 37.0 88 17 128/82 (97) 98 Nasal Cannula 2.0 08/22/17 17:00 Nasal Cannula 2.0 08/22/17 16:40 36.8 91 16 143/86 (105) 98 Nasal Cannula 2.0 08/22/17 16:40 Room Air 08/22/17 16:30 36.6 85 16 131/86 98 Nasal Cannula 2 08/22/17 16:20 83 16 123/82 99 Nasal Cannula 2 08/22/17 16:10 82 16 139/85 99 Nasal Cannula 2 08/22/17 16:00 79 16 139/84 98 Oxymask 10 08/22/17 15:54 36.4 82 16 139/84 97 Oxymask 10 08/22/17 12:52 85 08/22/17 12:48 80 18 135/69 93 Room Air 08/22/17 12:01 85 18 95 Room Air 08/22/17 10:58 78 16 117/57 Room Air 08/22/17 09:44 77 16 110/59 Room Air 08/22/17 09:14 76 08/22/17 09:08 73 20 General Appearance: WD/WN, no apparent distress Head: normocephalic, atraumatic Neck: supple, trachea midline Respiratory/Chest: chest non-tender, lungs clear Cardiovascular: regular rate, rhythm, no gallop, no murmur Abdomen: non distended, soft, + abnormal bowel sounds, + tenderness Incision(s): clean, drainage Extremities: non-tender, no pedal edema Laboratory Results: Results Past 24 Hours Test 08/22/17 09:00 08/22/17 13:07 08/22/17 15:58 Range/Units White Blood Count 8.87 4.8-10.8 K/uL Red Blood Count 4.87 4.7-6.1 M/uL Hemoglobin 16.1 14.0-18.0 g/dL Hematocrit 44.3 42-52 % Mean Corpuscular Volume 91.0 80-100 fL Mean Corpuscular Hemoglobin 33.1 25-34 pg Mean Corpuscular Hemoglobin Concent 36.3 32-36 g/dl Platelet Count 152 130-400 K/uL Mean Platelet Volume 10.5 7.4-10.4 fL Neutrophils (%) (Auto) 84.6 % Lymphocytes (%) (Auto) 8.2 % Monocytes (%) (Auto) 6.9 % Eosinophils (%) (Auto) 0.1 % Basophils (%) (Auto) 0.1 % Neutrophils # (Auto) 7.50 1.4-6.5 K/uL Lymphocytes # (Auto) 0.73 1.2-3.4 K/uL Monocytes # (Auto) 0.61 0.11-0.59 K/uL Eosinophils # (Auto) 0.01 0-0.5 K/uL Basophils # (Auto) 0.01 0-0.2 K/uL RDW Standard Deviation 40.9 36.4-46.3 fL RDW Coefficient of Variation 12.3 11.5-14.5 % Immature Granulocyte % (Auto) 0.1 % Immature Granulocyte # (Auto) 0.01 0.00-0.02 K/uL Sodium Level 137 136-145 mmol/L Potassium Level 3.8 3.5-5.1 mmol/L Chloride Level 103 98-107 mmol/L Carbon Dioxide Level 29 21-32 mmol/L Anion Gap 6.0 3-11 mmol/L Blood Urea Nitrogen 13 7-18 mg/dl Creatinine 1.27 0.60-1.40 mg/dl Est Creatinine Clear Calc Drug Dose 81.9 ml/min Estimated GFR () 71.7 Estimated GFR (Non- 61.9 BUN/Creatinine Ratio 10.4 10-20 Random Glucose 180 70-99 mg/dl Calcium Level 8.8 8.5-10.1 mg/dl Total Bilirubin 0.9 0.2-1 mg/dl Direct Bilirubin 0.2 0-0.2 mg/dl Aspartate Amino Transf (AST/SGOT) 14 15-37 U/L Alanine Aminotransferase (ALT/SGPT) 26 12-78 U/L Alkaline Phosphatase 93 45-117 U/L Total Protein 7.8 6.4-8.2 gm/dl Albumin 4.1 3.4-5.0 gm/dl Lipase 73 73-393 U/L Urine Color YELLOW Urine Appearance CLEAR CLEAR Urine pH 6.0 4.5-7.5 Urine Specific [place] > 1.045 1.000-1.030 Urine Protein NEG NEG Urine Glucose (UA) NEG NEG Urine Ketones NEG NEG Urine Occult Blood NEG NEG Urine Nitrite NEG NEG Urine Bilirubin NEG NEG Urine Urobilinogen NEG NEG Urine Leukocyte Esterase NEG NEG Bedside Glucose 194 70-99 mg/dl Assessment & Plan Perforated appendix -POD#1 -minimal GI function -IV abx -ambulate -will not advance diet till passing flatus
[2017-08-23] MEDS: PIOGLITAZONE TAB 15 MG TAB PO SCH (09:10)
[2017-08-23 13:51] VITALS: BP 119/69; PULSE 88; TEMP 36.7; O2SAT 92
[2017-08-23 14:24] VITALS: BP 134/76; PULSE 85; TEMP 37; O2SAT 93
[2017-08-23] MEDS ORDERED: NURSING VERBAL MED ORDER ONE (15:45)
[2017-08-23] MEDS ORDERED: FAMOTIDINE 20 MG TAB PO ONE (16:00)
[2017-08-23] MEDS ORDERED: ALUMINUM/MAGNESIUM SUSP 30 ML UDC PO PRN (16:00)
[2017-08-23] MEDS: CITALOPRAM 40 MG TAB PO SCH (21:39)
[2017-08-23 23:00] VITALS: BP 112/68; PULSE 93; TEMP 37.6; O2SAT 92
[2017-08-23 23:04] VITALS: TEMP 37.4
[2017-08-24] MEDS: LACTATED RINGER'S 1000ML 1,000 ML IV SCH ×3 (02:50→22:54)
[2017-08-24 07:56] VITALS: BP 130/80; PULSE 83; TEMP 37.1; O2SAT 94
--- NOTE | 2017-08-24 07:57 | OPERATIVE REPORT ---
DATE OF OPERATION: 08/22/2017 PREOPERATIVE DIAGNOSIS: Acute appendicitis. POSTOPERATIVE DIAGNOSIS: Perforated appendicitis with phlegmon. OPERATIVE PROCEDURE: Laparoscopic converted to open appendectomy. ANESTHESIA: General endotracheal anesthesia. SURGEON: Shari Perry MD DECK STEWARD: None. ESTIMATED BLOOD LOSS: 15 mL. IV FLUIDS: 1400 mL. DRAINS: 10-flat ANTONIA in right lower quadrant. SPECIMENS: Appendix and base of cecum. OPERATIVE FINDINGS: Evidence of pus and phlegmonous changes upon entering the abdomen with some loose stool and area of appendix. The appendix was very densely inflamed and adherent to the cecum, inflammation extended into and was involving base of cecum. The perforation was high up near the base of cecum with two loose appendicolith within this region. INDICATIONS: Mr. Land is a 57-year-old gentleman who presented with 1 day of abdominal pain and CT findings suggestive of acute appendicitis. He was counseled regarding the need for appendectomy. He consented to proceed. DESCRIPTION OF PROCEDURE: The patient received Mefoxin preoperatively. After the induction of general endotracheal anesthesia, he had placement of sequential compression devices. He had voided just prior to the procedure, thus a Fink catheter was not placed. His abdomen was clipped and then sterilely prepped and draped. He was positioned with his left arm tucked prior to this. Initially he was placed in Trendelenburg and a supraumbilical incision was made. A Veress needle was placed into peritoneal cavity, this was tested with the saline drop test. Initial pressure was 2 mmHg and this was taken up to 15 mmHg. A 12 mm trocar was placed. Two additional trocars were placed under direct vision, a 5 in the left lower quadrant and a 5 in the midline pubic area. Initial inspection of the abdomen revealed free pus in the pelvis and in the left lower quadrant. There were phlegmonous changes in the right lower quadrant with a very thickened inflamed appendix with terminal ileum socked over this, this was all peeled away. The cecum was very adherent to the lateral side wall with the omentum having stuck down, this was also peeled away. Dissection was begun at the tip of the appendix and I was able to raise it enough to get a PRISCILA around a very small part of the mesentery; however, at this point the terminal ileum was very stuck, the perforation could be freely visible and was located very close to the base of the cecum and two free appendicolith were seen. Thus, decision was made to convert to open. The trocars were removed. A midline incision was made and carried down into the abdomen. Using a combination of blunt and sharp dissection, the appendix was mobilized up into the wound. The white line of Toldt was mobilized to allow the cecum to come up into the wound. The appendiceal mesentery was taken with Vicryl ties. The terminal ileum was carefully peeled away and now the junction could be seen of the terminal ileum, base of cecum, and appendix with appendiceal perforation. I did feel that we would be able to get around at the base of the cecum just below the terminal ileum entrance to it without impacting the terminal ileum entrance. Thus a TA-60 stapler was used and fired in this area and the appendix removed. The ends of the TA-60 staple line were inverted with Vicryl stitches. The remainder of the staple line appeared intact. As mentioned the terminal ileum entrance at the base of the cecum was not impacted. The abdomen was irrigated and suctioned until the effluent was clear. A 10-flat ANTONIA was brought through the right lateral stab site and placed into the left lower quadrant. This was secured to the skin with a nylon stitch. Hemostasis was noted to be present again. The fascia of the midline incision was closed with two running 0 PDS sutures. The midline pubic site was closed with running subcuticular 4-0 Vicryl suture. The left lower quadrant site had a nylon stitch used to secure the drain. The skin was irrigated and loosely closed with jerica. Sterile dressings were applied. He was awakened and taken to recovery in stable condition. I attest to the content of the Intraoperative Record and any orders documented therein. Any exception s are noted below.
[2017-08-24] MEDS: FAMOTIDINE 20 MG TAB PO SCH (08:56)
[2017-08-24] MEDS: PIOGLITAZONE TAB 15 MG TAB PO SCH (08:56)
[2017-08-24 09:06] VITALS: O2SAT 94
[2017-08-24] MEDS: OXYCODONE/ACETAMINOPHEN 5-325 TAB PO PRN ×3 (10:16→23:59)
[2017-08-24 12:03] VITALS: BP 110/62; PULSE 75; TEMP 36.6; O2SAT 95
--- NOTE | 2017-08-24 14:09 | Surgery Progress Note ---
Surgery Progress Note Date of Service Aug 24, 2017. Subjective Post OP Day: 2 + pain controlled, No bowel movement, No flatus, No nausea, No vomiting Objective Vital Signs: Date Time Temp Pulse Resp B/P (MAP) Pulse Ox O2 Delivery O2 Flow Rate FiO2 08/24/17 12:03 36.6 75 18 110/62 (78) 95 Room Air 08/24/17 09:06 94 Room Air 08/24/17 07:56 37.1 83 19 130/80 (97) 94 Room Air 08/24/17 07:20 Room Air 08/23/17 23:15 Room Air 08/23/17 23:04 37.4 08/23/17 23:00 37.6 93 16 112/68 (83) 92 Room Air 08/23/17 15:40 Room Air 08/23/17 14:24 37.0 85 16 134/76 (95) 93 Room Air Abdomen: non distended, soft, + tenderness (mild) Assessment & Plan S/P open appendectomy Stable No GI function as yet Continue liquids Continue ambulation Continue IV antibiotics
[2017-08-24] MEDS: CEFOXITIN IV 2,000 MG in DEXTROSE 5% 50ML 50 ML IV SCH ×2 (14:54→20:46)
[2017-08-24 15:01] VITALS: BP 114/71; PULSE 79; TEMP 36.9; O2SAT 95
[2017-08-24] MEDS: CITALOPRAM 40 MG TAB PO SCH (20:46)
[2017-08-24 22:56] VITALS: BP 117/72; PULSE 72; TEMP 36.8; O2SAT 93
[2017-08-25] MEDS: CEFOXITIN IV 2,000 MG in DEXTROSE 5% 50ML 50 ML IV SCH ×4 (02:22→20:15)
[2017-08-25] MEDS: OXYCODONE/ACETAMINOPHEN 5-325 TAB PO PRN ×2 (05:14→10:32)
[2017-08-25 07:35] VITALS: BP 125/77; PULSE 68; TEMP 36.6; O2SAT 94
[2017-08-25] MEDS: FAMOTIDINE 20 MG TAB PO SCH (08:37)
[2017-08-25] MEDS: PIOGLITAZONE TAB 15 MG TAB PO SCH (08:37)
[2017-08-25] MEDS: LACTATED RINGER'S 1000ML 1,000 ML IV SCH ×2 (08:40→20:15)
[2017-08-25] MEDS ORDERED: BISACODYL 10 MG SUPP PR STA (09:39)
[2017-08-25 15:00] VITALS: BP 117/74; PULSE 68; TEMP 36.6; O2SAT 95
--- NOTE | 2017-08-25 15:09 | Surgery Progress Note ---
Surgery Progress Note Date of Service Aug 25, 2017. Subjective Post OP Day: 3 (s/p open appendectomy) + feeling well, + ambulating, + pain controlled, + diet (clear liquids), No complaints, No chest pain, No SOB, No bowel movement, No flatus, No nausea, No vomiting Objective Vital Signs: Date Time Temp Pulse Resp B/P (MAP) Pulse Ox O2 Delivery O2 Flow Rate FiO2 08/25/17 15:00 36.6 68 16 117/74 (88) 95 Room Air 08/25/17 07:35 36.6 68 16 125/77 (93) 94 Room Air 08/25/17 07:30 Room Air 08/24/17 23:45 Room Air 08/24/17 22:56 36.8 72 17 117/72 (87) 93 Room Air 08/24/17 15:15 Room Air Physical Exam: ANTONIA drainage (serosanguineous) General Appearance: WD/WN, no apparent distress Head: normocephalic, atraumatic Neck: trachea midline Respiratory/Chest: no respiratory distress, no accessory muscle use Abdomen: non tender, soft, no organomegaly, no pulsatile mass, + abnormal bowel sounds (hypoactive bowel sounds) Incision(s): clean, dry (dressings clean and dry, incision not inspected) Assessment & Plan POD # 3 s/p open appendectomy -vitals stable, afebrile - minimal abdominal pain, controlled - tolerating clear liquids - no return of bowel function - ANTONIA drain serosanguineous output, minimal Plan: Continue PO Percocet as needed for pain Continue IV antibiotics Advance diet to full liquids One time suppository this am Stool softener BID Continue ANTONIA drain to bulb suction encouraged ambulation Incentive spirometry Continue SCDs Hopeful discharge tomorrow Dr. Peña has seen and examined patient, agrees with above
[2017-08-25] MEDS: CITALOPRAM 40 MG TAB PO SCH (20:17)
[2017-08-25] MEDS: DOCUSATE SODIUM 100 MG CAP PO SCH (20:21)
[2017-08-25 22:46] VITALS: BP 136/77; PULSE 72; TEMP 37.1; O2SAT 95
[2017-08-26] MEDS: CEFOXITIN IV 2,000 MG in DEXTROSE 5% 50ML 50 ML IV SCH ×2 (01:20→08:21)
[2017-08-26] MEDS: LACTATED RINGER'S 1000ML 1,000 ML IV SCH (07:04)
[2017-08-26 07:16] LABS: HEMATOCRIT 34.7 % (42-52); HEMOGLOBIN 12.3 g/dL (14.0-18.0); MEAN CELL VOLUME 90.6 fL (80-100); MEAN CORPUSCULAR HEMOGLOBIN 32.1 pg (25-34); MEAN CORPUSCULAR HGB CONC 35.4 g/dl (32-36); MEAN PLATELET VOLUME 9.4 fL (7.4-10.4); PLATELET COUNT 183 K/uL (130-400); RED CELL DISTRIBUTION WIDTH CV 12.5 % (11.5-14.5); RED CELL DISTRIBUTION WIDTH SD 41.8 fL (36.4-46.3); WHITE BLOOD COUNT 6.14 K/uL (4.8-10.8)
[2017-08-26 07:54] LABS: CALCIUM 8.7 mg/dl (8.5-10.1); CREATININE 1.06 mg/dl (0.60-1.40); POTASSIUM 3.7 mmol/L (3.5-5.1)
[2017-08-26 08:20] VITALS: BP 134/80; PULSE 72; TEMP 36.4; O2SAT 95
[2017-08-26] MEDS: DOCUSATE SODIUM 100 MG CAP PO SCH (08:23)
[2017-08-26] MEDS: FAMOTIDINE 20 MG TAB PO SCH (08:24)
[2017-08-26] MEDS: PIOGLITAZONE TAB 15 MG TAB PO SCH (08:24)
[2017-08-26 08:29] VITALS: O2SAT 95
[2017-08-26] MEDS ORDERED: OXYC-57 PO (10:06)
--- NOTE | 2017-08-26 10:29 | Discharge Instructions ---
Discharge Instructions Date of Service Aug 26, 2017. Admission Reason for Admission: Acute Perforated Appendicitis Discharge Discharge Diagnosis / Problem: same Discharge Goals Goal(s): Decrease discomfort, Improve function Activity Recommendations Activity Limitations: per Instructions/Follow-up section No heavy lifting over 10 pounds for 6 weeks No strenuous activity until cleared by surgeon No submerging incisions underwater for 2 weeks or until cleared to do so (no bathing, swimming, or hot tubs) No driving while taking narcotic pain medication or until you are pain free . Instructions / Follow-Up Instructions / Follow-Up You may shower this evening when you get home. Gently clean incision with soap and water. Cover midline incision daily or as needed to keep clean and dry Monitor for any increasing redness,drainage, pain, of the midline incision. If you develop any fever, chills, pain, redness of midline incision please call office immediately. Walking and light activity is encouraged to prevent blood clots from forming in legs You will be given prescription for narcotic pain medication (Percocet) as needed for moderate to severe pain. This medication may make you drowsy and can also cause constipation. Drink plenty of water daily, daily stool softener OTC such as Colace, and daily light activity will help prevent constipation You may take extra strength Ibuprofen/Tylenol as needed for mild pain Finish entire course of antibiotics as prescribed Follow-up in surgical office in 1 week, please call office at [phone] to make an appointment. Vanessa will be removed in the office. Current Hospital Diet Patient's current hospital diet: Full Liquid Diet Discharge Diet Recommended Diet: Regular Diet (advance as tolerated in next few days) Procedures Procedures Performed: Laparoscopic converted to Open appendectomy Pending Studies Studies pending at discharge: no Medical Emergencies . Who to Call and When: Medical Emergencies: If at any time you feel your situation is an emergency, please call 911 immediately. . Non-Emergent Contact Non-Emergency issues call your: Primary Care Provider, Surgeon Call Non-Emergent contact if: you have a fever, temperature is above 101, your pain is not controlled, your pain is worsening, your pain is unusual for you, wound has increased drainage, wound has increased redness, wound has increased pain . "Provider Documentation" section prepared by Yamileth Kwon. . VTE Core Measure Inpt VTE Proph given/why not?: SCD's [place] Drug Monitoring Program Search Results: patient reviewed within database, no issues identified
[2017-08-26] MEDS ORDERED: CIPR-255 PO (10:39)
[2017-08-26] MEDS ORDERED: METR500T PO (10:39)
--- NOTE | 2017-08-26 10:47 | Surgery Progress Note ---
Surgery Progress Note Date of Service Aug 26, 2017. Subjective Post OP Day: 4 + feeling well, + ambulating, + bowel movement, + flatus, + pain controlled, + diet (full liquids), No complaints, No chest pain, No SOB, No nausea, No vomiting Objective Vital Signs: Date Time Temp Pulse Resp B/P (MAP) Pulse Ox O2 Delivery O2 Flow Rate FiO2 08/26/17 08:29 95 Room Air 08/26/17 08:20 36.4 72 18 134/80 (98) 95 Room Air 08/26/17 07:30 Room Air 08/25/17 23:15 Room Air 08/25/17 22:46 37.1 72 17 136/77 (96) 95 Room Air 08/25/17 15:00 36.6 68 16 117/74 (88) 95 Room Air 08/25/17 15:00 Room Air Physical Exam: VENICE drainage (minimal, scant, serosanguineous drainage) General Appearance: WD/WN, no apparent distress Head: normocephalic, atraumatic Neck: trachea midline Respiratory/Chest: no respiratory distress, no accessory muscle use Abdomen: non distended, soft, no organomegaly, no pulsatile mass, + tenderness (at midline incision and LLQ at venice drain site) Incision(s): clean, dry, intact, no drainage, erythema (erythema just to left of the middle of midline incision) Laboratory Results: Results Past 24 Hours Test 08/26/17 06:56 Range/Units White Blood Count 6.14 4.8-10.8 K/uL Red Blood Count 3.83 4.7-6.1 M/uL Hemoglobin 12.3 14.0-18.0 g/dL Hematocrit 34.7 42-52 % Mean Corpuscular Volume 90.6 80-100 fL Mean Corpuscular Hemoglobin 32.1 25-34 pg Mean Corpuscular Hemoglobin Concent 35.4 32-36 g/dl RDW Standard Deviation 41.8 36.4-46.3 fL RDW Coefficient of Variation 12.5 11.5-14.5 % Platelet Count 183 130-400 K/uL Mean Platelet Volume 9.4 7.4-10.4 fL Sodium Level 138 136-145 mmol/L Potassium Level 3.7 3.5-5.1 mmol/L Chloride Level 102 98-107 mmol/L Carbon Dioxide Level 29 21-32 mmol/L Anion Gap 7.0 3-11 mmol/L Blood Urea Nitrogen 10 7-18 mg/dl Creatinine 1.06 0.60-1.40 mg/dl Est Creatinine Clear Calc Drug Dose 98.1 ml/min Estimated GFR () 89.2 Estimated GFR (Non- 77.0 BUN/Creatinine Ratio 9.1 10-20 Random Glucose 137 70-99 mg/dl Calcium Level 8.7 8.5-10.1 mg/dl Assessment & Plan POD # 4 s/p open appendectomy -vitals stable, afebrile - minimal abdominal pain, controlled - tolerating full liquids - + bowel function - VENICE drain serosanguineous output, minimal 5 cc today. 15 yesterday - midline incision with some erythema, three jerica removed and incision probed, serous drainage present, no purulence. Plan: Plan for discharge later this morning. Discharge instructions reviewed with patient, specifically finishing course of oral antibiotics (Cipro/flagyl) and any signs of increasing redness of midline incision, fever, chills, or purulent drainage pt is to call office immediately. He understood. Son will help with dressing changes VENICE drain removed Rx for Percocet as needed for pain Follow-up surgery office [address] Peña has seen and examined patient, agrees with above
[2017-08-26 11:19] VITALS: BP 134/80; PULSE 72; TEMP 36.4; O2SAT 95
--- NOTE | 2017-08-27 16:12 | Discharge Summary ---
Discharge Summary Dates Admission Date / Time: Aug 22, 2017 at 15:46 Discharge Date: Aug 26, 2017 Dispostion / Condition Discharge Disposition: Home Condition at Discharge: Good Principal Diagnosis (1) Acute perforated appendicitis Problem List (1) DDD (degenerative disc disease), cervical (2) Diabetes Consultations / Procedures Consultations: None Procedures: Laparoscopic converted to open appendectomy with placement of surgical drain Vaccinations: None Pending Studies / Follow-Up None Medication Reconciliation New Medications: Ciprofloxacin Hcl (Cipro) 500 Mg Tab 500 MG PO BID for 7 Days, #14 TAB 0 Refills Metronidazole (Flagyl) 500 Mg Tab 500 MG PO TID for 7 Days, #21 TAB Oxycodone/Acetaminophen 5MG/325MG (Percocet 5MG/325MG) Tab 1 TABLET PO Q4H PRN for Pain, #18 TAB Continued Medications: Acetaminophen (Tylenol) 325 Mg Tab 2 TAB PO Q6 PRN for Pain, TAB Bupropion (Wellbutrin) 100 Mg Tab 200 MG PO BID, 0 Refills Citalopram (Celexa *) 40 Mg Tab 40 MG PO HS, 0 Refills Fluticasone Propionate (Flonase Nasal [place]) 120 Sprays/6000 Mcg [place] 2 SPRAY JILLIAN DAILY PRN, BTL Pioglitazone (Actos) 30 Mg Tab 1 TAB PO QAM for 90 Days, #90 TAB 3 Refills Zolpidem Tartrate (Ambien) 10 Mg Tab 10 MG PO HS PRN for Insomnia, TAB Admission HPI Per the Admitting provider: 57 yr old man who presents with right lower quadrant pain since yesterday. Constant, sharp, 10/10 in severity, no radiation, worse with movement, felt chilled but did not take his temperature. No similar symptoms. Associated with anorexia, last meal was yesterday. No nausea or vomiting. Last cscope in 1999, no polyps as by his report. Came to ER with CT scan showing appendicitis with thickened cecum. Admission Exam Per the Admitting provider: General Appearance: WD/WN, no apparent distress Head: normocephalic, atraumatic Eyes: normal inspection, PERRL ENT: normal ENT inspection, hearing grossly normal Neck: trachea midline Respiratory/Chest: lungs clear, normal breath sounds, no respiratory distress Cardiovascular: regular rate, rhythm Abdomen/GI: normal bowel sounds, soft, + tenderness (over McBurney's point with guarding) Back: normal inspection, no CVA tenderness Extremities/Musculoskelatal: no calf tenderness, no pedal edema Neurologic/Psych: alert, normal mood/affect, oriented x 3 Skin: normal color, warm/dry Hospital Course (1) Acute perforated appendicitis Patient was taken to operating room for laparoscopic possible open appendectomy by Dr. Perry on 08/22/2017. There was evidence of pus and phlegmonous changes upon entering the abdomen with some loose stool at area of appendix. The appendix was very densely inflamed and adherent to the cecum, inflammation extended into and was involving base of cecum. The perforation was high up near the base of cecum with two loose appendicolith within this region. Therefore the procedure was converted to open. Surgical drain was placed. Patient tolerated procedure well and was transferred to recovery and then to medical/surgical floor in stable condition. Patient was started on IV fluids, IV antibiotics Cefoxitin every 6 hours, IV Zofran as needed for nausea, PO Percocet with breakthrough IV Morphine as needed for pain, Clear liquids diet, activity as tolerated, venice drain to bulb suction, and SCDs. Patient was evaluated on POD # 1. Had slight fever , Tmax of 37.6. Tolerating clear liquids however no return of bowel function. Urinating without difficulty. Clear liquids were continued. POD # 2, again pain controlled and tolerating clear liquids however no return of bowel function. Encouraged ambulation. POD # 3 patient tolerating clear liquids, no return of bowel function. Afebrile. Minimal output of VENICE drain and serosanguineous. Diet was advanced to full liquids. Given 1 dose of suppository and BID dosing of stool softener. Continued to encourage ambulation to stimulate bowel function. POD # 4, labs showed no leukocytosis, electrolytes wnl, afebrile, pain controlled, +bowel function with flatus and bowel movement, minimal venice drain output. There was some incisional erythema however no induration or fluctuance. Three jerica removed and the incision was probed with q-tip. Serous drainage presented however no purulence. The incision was dressed with 4x4. VENICE drain removed. Patient was discharged home on POD # 4 in stable condition. Was sent home with 7 day course of Cipro/Flagyl and 1 week follow-up in our office. Overall hospital was uneventful but slightly prolonged given slow return of GI function. Discharge Instructions as given to patient Copies To Primary Care Provider: Jeremías Trevino M.D..
== END 2017-08-26 12:16 | disposition home or self-care (01) | DRG 340 ==
LOC: C.EDB 08:10 → C.MSN 15:46 → ENRESERV 16:10
PROVIDERS: ADMIT Surgery; ATTEND Surgery
PROC: 0DBH0ZX Excision of Cecum, Open Approach, Diagnostic (ICD-10-PCS; principal; 2017-08-22 13:45)
PROC: 0DTJ0ZZ Resection of Appendix, Open Approach (ICD-10-PCS; principal; 2017-08-22 13:45)
DX: K35.3 Acute appendicitis with localized peritonitis (principal); Z53.31 Laparoscopic surgical procedure converted to open procedure; R73.03 Prediabetes; Z79.899 Other long term (current) drug therapy